=== PATIENT | male | born 1970 | race American Indian/Alaskan Native ===

== ENCOUNTER 2020-10-11 02:53 | Emergency (ER) | payer SELFPAY ==
[2020-10-11 03:52] VITALS: BP 139/90
--- NOTE | 2020-10-11 08:21 | XRay Report ---
Left hip, 2 views. INDICATION: left hip pain. COMPARISON: None. FINDINGS: Frontal and frog-leg lateral views of the hip labeled left were obtained. There is no evide nce of fracture or dislocation. Joint spaces appear preserved without significant degenerative change . Partially visualized mild to moderate degenerative change in the lower lumbar spine. IMPRESSION: Unremarkable left hip radiographs. No evidence of acute osseous injury or significant degenerative ch amber. Signer Name: Jamie Avitia MD Signed: 10/11/2020 8:16 AM Workstation Name: [id number]
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
== END 2020-10-11 08:47 | disposition home or self-care (01) ==
LOC: ED 02:53
DX: M25.552 Pain in left hip (principal); I10 Essential (primary) hypertension; F17.200 Nicotine dependence, unspecified, uncomplicated; Z79.899 Other long term (current) drug therapy; Z98.890 Other specified postprocedural states